=== PATIENT | male | born 1955 | race Caucasian/White ===

== ENCOUNTER 2019-11-21 15:27 | Inpatient (IN) | payer MEDICARE, OTHER, MEDICAID ==
[~2019-11-21] VITALS: Ht 165.1 cm; Wt 66.7 kg
[2019-11-21] MEDS ORDERED: SODIUM CHLORIDE 0.9% 1,000 ML IV ONE ×2 (16:08→17:10)
[2019-11-21] MEDS ORDERED: ACETAMINOPHEN 325MG TABLET PO ONE (16:15)
[2019-11-21] MEDS ORDERED: CEFTRIAXONE 1 G PREMIX 50 ML IV ONE (16:45)
[2019-11-21] MEDS ORDERED: AZITHROMYCIN 500 MG in DEXT 5% WATER 250 ML IV ONE (16:45)
[2019-11-21 17:58] LABS: BASOPHILS % 0.2 % (0.0-2.0); HEMATOCRIT. 44.3 % (42.0-52.0); LYMPHOCYTES % 17.7 % (20.0-50.0); MEAN CORPUSCULAR HEMOGLOBIN 31.9 pg (28.0-32.0); MEAN PLATELET VOLUME 8.1 fl (7.4-10.4); MONOCYTES % 7.8 % (2.0-8.0); NEUTROPHILS % 74.3 % (40.0-76.0); PLATELET 206 x1000/uL (130-400); RED BLOOD CELL COUNT 4.71 mill/uL (4.7-6.1); RED CELL DISTRIBUTION WIDTH 13.3 % (11.6-14.6)
[2019-11-21 18:07] LABS: CHLORIDE 101 mEq/L (98-107)
[2019-11-21 18:09] LABS: D-DIMER 1.19 mg/L FEU (<0.50); INR 1.1; PROTHROMBIN TIME 11.7 sec (9.6-11.0)
[2019-11-21 18:15] LABS: CREATINE KINASE 229 IU/L (39-308)
[2019-11-21] MEDS ORDERED: TRAMADOL 50MG TABLET PO PRN (19:15)
[2019-11-21] MEDS ORDERED: ALBUTEROL 6.7GM HFA INHALER ORI PRN (19:15)
[2019-11-21] MEDS ORDERED: DOCUSATE SODIUM 100MG CAPSULE PO PRN (19:15)
[2019-11-21] MEDS ORDERED: NITROGLYCERIN 0.4MG TABLET SL SL PRN (19:15)
[2019-11-21] MEDS ORDERED: CLONIDINE 0.1MG TABLET PO PRN (19:15)
[2019-11-21] MEDS ORDERED: MAGNESIUM/ALUMINUM HYDROXIDE/SIMETHICONE 30ML UDC PO PRN (19:15)
[2019-11-21] MEDS ORDERED: LORAZEPAM 0.5MG TABLET PO PRN (19:15)
[2019-11-21] MEDS ORDERED: ACETAMINOPHEN 325MG TABLET PO PRN (19:15)
[2019-11-21] MEDS ORDERED: ONDANSETRON HCL 4MG/2ML INJ IV PRN (19:15)
[2019-11-21] MEDS: ASCORBIC ACID 500 MG TABLET PO SCH (20:30)
[2019-11-21] MEDS: FAMOTIDINE 20MG TABLET PO SCH (20:30)
[2019-11-21] MEDS: GUAIFENESIN/DM 600MG/30MG ER TAB 12HR PO SCH (20:30)
[2019-11-21] MEDS: ENOXAPARIN 80MG/0.8ML SYR SUBCUT SCH (20:30)
[2019-11-21] MEDS ORDERED: ZOLPIDEM TARTRATE 5MG TABLET PO PRN (21:00)
[2019-11-21 21:27] LABS: CLARITY URINE CLEAR (CLEAR); COLOR URINE YELLOW (YELLOW); KETONES URINE NEGATIVE (NEGATIVE); LEUKOCYTE ESTERASE URINE NEGATIVE (NEGATIVE); NITRITE URINE NEGATIVE (NEGATIVE); OCCULT BLOOD URINE NEGATIVE (NEGATIVE); PROTEIN URINE 1+ (NEGATIVE); SPECIFIC GRAVITY URINE 1.013 (1.005-1.030)
[2019-11-21 21:53] LABS: METHADONE URINE SCREEN NEGATIVE (NEGATIVE); OPIATES URINE SCREEN NEGATIVE (NEGATIVE); PHENCYCLIDINE URINE SCREEN NEGATIVE (NEGATIVE)
[2019-11-21 21:55] LABS: *AMPHETAMINES SCREEN URINE NEGATIVE (NEGATIVE); *BARBITURATES SCREEN URINE NEGATIVE (NEGATIVE); *BENZODIAZEPINES SCREEN URINE NEGATIVE (NEGATIVE); *COCAINE SCREEN URINE NEGATIVE (NEGATIVE); CANNABINOID URINE SCREEN NEGATIVE (NEGATIVE)
[2019-11-21 23:42] LABS: CREATINE KINASE 230 IU/L (39-308)
[2019-11-21 23:43] LABS: CREATINE KINASE MB FRACTION < 1.0 ng/mL (0.5-3.6)
[2019-11-22 00:45] VITALS: BP 111/75
[2019-11-22 04:00] VITALS: BP 105/65
[2019-11-22 07:15] LABS: CHLORIDE 106 mEq/L (98-107)
[2019-11-22 07:20] LABS: PHOSPHORUS 3.4 mg/dL (2.5-4.9)
[2019-11-22 07:24] LABS: BASOPHILS % 0.2 % (0.0-2.0); CREATINE KINASE 219 IU/L (39-308); HEMATOCRIT. 39.9 % (42.0-52.0); HEMOGLOBIN. 13.7 g/dL (14.0-18.0); LYMPHOCYTES % 15.2 % (20.0-50.0); MEAN CORPUSCULAR VOLUME 93.6 fL (80.0-94.0); MEAN PLATELET VOLUME 8.4 fl (7.4-10.4); NEUTROPHILS % 76.6 % (40.0-76.0); PLATELET 203 x1000/uL (130-400); RED BLOOD CELL COUNT 4.26 mill/uL (4.7-6.1); RED CELL DISTRIBUTION WIDTH 13.4 % (11.6-14.6)
[2019-11-22 07:27] LABS: CREATINE KINASE MB FRACTION 1.2 ng/mL (0.5-3.6)
[2019-11-22 08:00] VITALS: BP 113/62
[2019-11-22] MEDS: FAMOTIDINE 20MG TABLET PO SCH ×2 (08:07→22:13)
[2019-11-22] MEDS: ENOXAPARIN 80MG/0.8ML SYR SUBCUT SCH ×2 (08:07→22:13)
[2019-11-22] MEDS: GUAIFENESIN/DM 600MG/30MG ER TAB 12HR PO SCH ×2 (08:07→22:13)
[2019-11-22] MEDS: ZINC SULFATE 220 MG ( 50 ) CAPSULE PO SCH (08:07)
[2019-11-22] MEDS: ASCORBIC ACID 500 MG TABLET PO SCH ×2 (08:07→22:13)
[2019-11-22] MEDS: ASPIRIN 325MG EC TABLET PO SCH (08:07)
[2019-11-22] MEDS: ACETAMINOPHEN 325MG TABLET PO PRN ×2 (08:08→17:07)
[2019-11-22] MEDS: DEXAMETHASONE 4MG TABLET PO SCH (11:49)
[2019-11-22 12:00] VITALS: BP 107/63
[2019-11-22] MEDS ORDERED: PNEUMOCOCCAL 23-VAL P-SAC VAC 0.5 ML IM ONE (12:00)
[2019-11-22] MEDS: ALBUTEROL 6.7GM HFA INHALER ORI SCH (12:28)
[2019-11-22 16:00] VITALS: BP 114/67
[2019-11-22] MEDS: CEFTRIAXONE 1,000 MG in DEXTROSE 5% WATER 50 ML IV SCH (17:07)
[2019-11-22] MEDS ORDERED: CEFTRIAXONE 1 G PREMIX 50 ML IV SCH (18:00)
[2019-11-22] MEDS ORDERED: AZITHROMYCIN 500 MG in DEXT 5% WATER 250 ML IV SCH (18:00)
[2019-11-22] MEDS: AZITHROMYCIN 500 MG in DEXT 5% WATER 250 ML IV SCH (19:14)
[2019-11-22 20:00] VITALS: BP 109/76
[2019-11-23] VITALS: BP 126/72
[2019-11-23] MEDS: GUAIFENESIN 200MG/10ML SUGAR FREE UDC PO PRN (01:12)
[2019-11-23 04:00] VITALS: BP 106/70
[2019-11-23] MEDS: DEXAMETHASONE 4MG TABLET PO SCH (08:06)
[2019-11-23] MEDS: ZINC SULFATE 220 MG ( 50 ) CAPSULE PO SCH (08:07)
[2019-11-23] MEDS: FAMOTIDINE 20MG TABLET PO SCH ×2 (08:07→20:42)
[2019-11-23] MEDS: GUAIFENESIN/DM 600MG/30MG ER TAB 12HR PO SCH ×2 (08:07→20:42)
[2019-11-23] MEDS: ENOXAPARIN 80MG/0.8ML SYR SUBCUT SCH ×2 (08:07→20:43)
[2019-11-23] MEDS: ASPIRIN 325MG EC TABLET PO SCH (08:07)
[2019-11-23] MEDS: ASCORBIC ACID 500 MG TABLET PO SCH ×2 (08:07→20:42)
[2019-11-23 08:30] VITALS: BP 116/74
[2019-11-23 12:00] VITALS: BP 109/59
[2019-11-23] MEDS ORDERED: PNEUMOCOCCAL 23-VAL P-SAC VAC 0.5 ML IM ONE (12:00)
[2019-11-23] MEDS: ALBUTEROL 6.7GM HFA INHALER ORI SCH ×2 (13:09→18:57)
[2019-11-23 16:00] VITALS: BP 116/80
[2019-11-23] MEDS: CEFTRIAXONE 1,000 MG in DEXTROSE 5% WATER 50 ML IV SCH (17:16)
[2019-11-23] MEDS: AZITHROMYCIN 500 MG in DEXT 5% WATER 250 ML IV SCH (17:38)
[2019-11-23 20:00] VITALS: BP 106/70
[2019-11-24] VITALS: BP 99/53
[2019-11-24] MEDS: ALBUTEROL 6.7GM HFA INHALER ORI SCH ×4 (00:33→18:21)
[2019-11-24 04:00] VITALS: BP 106/66
[2019-11-24 08:00] VITALS: BP 101/60
[2019-11-24] MEDS: GUAIFENESIN 200MG/10ML SUGAR FREE UDC PO PRN (09:31)
[2019-11-24] MEDS: ZINC SULFATE 220 MG ( 50 ) CAPSULE PO SCH (09:32)
[2019-11-24] MEDS: ASPIRIN 325MG EC TABLET PO SCH (09:32)
[2019-11-24] MEDS: GUAIFENESIN/DM 600MG/30MG ER TAB 12HR PO SCH ×2 (09:32→20:37)
[2019-11-24] MEDS: ENOXAPARIN 80MG/0.8ML SYR SUBCUT SCH ×2 (09:32→20:37)
[2019-11-24] MEDS: DEXAMETHASONE 4MG TABLET PO SCH (09:32)
[2019-11-24] MEDS: ASCORBIC ACID 500 MG TABLET PO SCH ×2 (09:32→20:37)
[2019-11-24] MEDS: FAMOTIDINE 20MG TABLET PO SCH ×2 (10:01→20:37)
[2019-11-24 12:00] VITALS: BP 105/63
[2019-11-24 16:00] VITALS: BP 108/61
[2019-11-24] MEDS: CEFTRIAXONE 1,000 MG in DEXTROSE 5% WATER 50 ML IV SCH (16:49)
[2019-11-24] MEDS: AZITHROMYCIN 500 MG in DEXT 5% WATER 250 ML IV SCH (18:21)
[2019-11-24 20:00] VITALS: BP 106/66
[2019-11-25] VITALS: BP 112/69
[2019-11-25] MEDS: ALBUTEROL 6.7GM HFA INHALER ORI SCH ×3 (00:01→12:00)
[2019-11-25 04:00] VITALS: BP 116/62
[2019-11-25 08:00] VITALS: BP 117/76
[2019-11-25] MEDS: GUAIFENESIN/DM 600MG/30MG ER TAB 12HR PO SCH ×2 (08:43→21:32)
[2019-11-25] MEDS: DEXAMETHASONE 4MG TABLET PO SCH (08:43)
[2019-11-25] MEDS: ASPIRIN 325MG EC TABLET PO SCH (08:44)
[2019-11-25] MEDS: ASCORBIC ACID 500 MG TABLET PO SCH ×2 (08:44→21:32)
[2019-11-25] MEDS: ZINC SULFATE 220 MG ( 50 ) CAPSULE PO SCH (08:44)
[2019-11-25] MEDS: FAMOTIDINE 20MG TABLET PO SCH ×2 (08:44→21:32)
[2019-11-25] MEDS: ENOXAPARIN 80MG/0.8ML SYR SUBCUT SCH ×2 (08:45→21:33)
[2019-11-25 12:00] VITALS: BP 113/90
[2019-11-25 16:00] VITALS: BP 115/76
[2019-11-25] MEDS: CEFTRIAXONE 1,000 MG in DEXTROSE 5% WATER 50 ML IV SCH (16:51)
[2019-11-25] MEDS: AZITHROMYCIN 500 MG in DEXT 5% WATER 250 ML IV SCH (18:05)
[2019-11-25 20:00] VITALS: BP 110/67
[2019-11-26] VITALS: BP 122/76
[2019-11-26 04:00] VITALS: BP 110/62
[2019-11-26] MEDS: ALBUTEROL 6.7GM HFA INHALER ORI SCH ×4 (06:04→17:45)
[2019-11-26 08:00] VITALS: BP 114/76
[2019-11-26] MEDS: ENOXAPARIN 80MG/0.8ML SYR SUBCUT SCH ×2 (08:54→21:00)
[2019-11-26] MEDS: FAMOTIDINE 20MG TABLET PO SCH ×2 (08:55→20:59)
[2019-11-26] MEDS: DEXAMETHASONE 4MG TABLET PO SCH (08:55)
[2019-11-26] MEDS: ASPIRIN 325MG EC TABLET PO SCH (08:55)
[2019-11-26] MEDS: GUAIFENESIN/DM 600MG/30MG ER TAB 12HR PO SCH ×2 (08:55→20:59)
[2019-11-26] MEDS: ZINC SULFATE 220 MG ( 50 ) CAPSULE PO SCH (08:55)
[2019-11-26] MEDS: ASCORBIC ACID 500 MG TABLET PO SCH ×2 (08:55→20:59)
[2019-11-26 12:00] VITALS: BP 115/65
[2019-11-26 16:00] VITALS: BP 118/70
[2019-11-26 20:00] VITALS: BP 123/77
[2019-11-27] VITALS: BP 125/80
[2019-11-27] MEDS: ALBUTEROL 6.7GM HFA INHALER ORI SCH ×3 (00:45→11:19)
[2019-11-27 04:00] VITALS: BP 126/81
[2019-11-27 08:00] VITALS: BP 131/80
[2019-11-27] MEDS: ZINC SULFATE 220 MG ( 50 ) CAPSULE PO SCH (08:27)
[2019-11-27] MEDS: FAMOTIDINE 20MG TABLET PO SCH (08:27)
[2019-11-27] MEDS: DEXAMETHASONE 4MG TABLET PO SCH (08:27)
[2019-11-27] MEDS: GUAIFENESIN/DM 600MG/30MG ER TAB 12HR PO SCH (08:27)
[2019-11-27] MEDS: ASPIRIN 325MG EC TABLET PO SCH (08:27)
[2019-11-27] MEDS: ASCORBIC ACID 500 MG TABLET PO SCH (08:27)
[2019-11-27] MEDS: ENOXAPARIN 80MG/0.8ML SYR SUBCUT SCH (08:28)
[2019-11-27 10:03] VITALS: BP 131/80
[2019-11-28] MEDS ORDERED: DEXAMETHASONE 4MG TABLET PO SCH (09:00)
== END 2019-11-27 11:55 | disposition home health service (06) | DRG 871 ==
LOC: ER 15:27 → MICUSO 18:44 → EDBEDREQTM 18:56 → EDBEDREQ 18:56 → SUPCPDRO 19:02 → 7WST 11-22 00:36
PROVIDERS: ADMIT Internal Medicine; ATTEND Internal Medicine
DX: A41.89 Other specified sepsis (principal); U07.1 COVID-19; J96.01 Acute respiratory failure with hypoxia; J12.89 Other viral pneumonia; E43 Unspecified severe protein-calorie malnutrition; E87.1 Hypo-osmolality and hyponatremia; D68.59 Other primary thrombophilia; E83.51 Hypocalcemia; Z68.24 Body mass index [BMI] 24.0-24.9, adult
CPT/HCPCS: 36415; 71045; 80053; 80061; 80305; 81003; 82550; 82553; 82728; 83036; 83605; 83615; 83735; 83880; 84100; 84145; 84484; 85025; 85379; 85384; 86140; 87635; 87804; 90732; 93005; 93970; 94640; 99285; J0456; J0696; J1650; J7030; J7060; J8540

== ENCOUNTER 2021-12-31 10:46 | Inpatient (IN) | payer MEDICARE, OTHER ==
[~2021-12-31] VITALS: Ht 160 cm; Wt 82.1 kg
[2021-12-31] MEDS ORDERED: MAGNESIUM/ALUMINUM HYDROXIDE/SIMETHICONE 30ML UDC PO STA (14:21)
[2021-12-31] MEDS ORDERED: DICYCLOMINE 10 MG/5 ML ORAL SYR PO STA (14:21)
[2021-12-31 14:57] LABS: BASOPHILS % 0.3 % (0.0-2.0); EOSINOPHILS % 0.3 % (0.0-5.0); HEMATOCRIT. 45.2 % (42.0-52.0); HEMOGLOBIN. 14.8 g/dL (14.0-18.0); MEAN CORPUSCULAR HEMOGLOBIN 31.8 pg (28.0-32.0); MEAN CORPUSCULAR VOLUME 96.8 fL (80.0-94.0); MONOCYTES % 9.1 % (2.0-8.0); NEUTROPHILS % 78.3 % (40.0-76.0); PLATELET 268 x1000/uL (130-400); RED BLOOD CELL COUNT 4.67 mill/uL (4.7-6.1); RED CELL DISTRIBUTION WIDTH 13.7 % (11.6-14.6)
[2021-12-31 15:01] LABS: CHLORIDE 100 mEq/L (98-107)
[2021-12-31] MEDS ORDERED: PIPERACILLIN/TAZ 3.375G PREMIX 50 ML IV ONE (17:45)
[2021-12-31] MEDS ORDERED: ONDANSETRON HCL 4MG/2ML INJ IV STA (18:35)
[2021-12-31] MEDS ORDERED: MORPHINE SULFATE 4 MG/ML CPJ (NOT FOR IM USE) IV STA (18:35)
[2021-12-31] MEDS: SODIUM CHLORIDE 0.9% 1,000 ML IV SCH (22:30)
[2021-12-31] MEDS ORDERED: CLONIDINE 0.1MG TABLET PO PRN (22:30)
[2021-12-31] MEDS ORDERED: PIPERACILLIN/TAZ 3.375G PREMIX 50 ML IV SCH (22:30)
[2021-12-31] MEDS ORDERED: ONDANSETRON HCL 4MG/2ML INJ IV PRN (22:30)
[2021-12-31] MEDS ORDERED: NALOXONE HCL 0.4MG/ML VIAL IV PRN (22:45)
[2022-01-01 01:15] VITALS: BP 104/54
[2022-01-01] MEDS: PIPERACILLIN/TAZOBACTAM 3.375G in DEXT 5% WATER 50ML IV SCH ×4 (01:53→21:40)
[2022-01-01] MEDS: MORPHINE SULFATE 2 MG/ML CPJ (NOT FOR IM USE) IV PRN (01:53)
[2022-01-01 04:00] VITALS: BP 95/55
[2022-01-01] MEDS: SODIUM CHLORIDE 0.9% 1,000 ML IV SCH ×3 (05:59→22:30)
[2022-01-01 08:00] VITALS: BP 108/63
[2022-01-01 08:20] LABS: BASOPHILS % 0.4 % (0.0-2.0); EOSINOPHILS % 1.6 % (0.0-5.0); HEMATOCRIT. 42.8 % (42.0-52.0); HEMOGLOBIN. 14.2 g/dL (14.0-18.0); LYMPHOCYTES % 11.4 % (20.0-50.0); MEAN CORPUSCULAR HEMOGLOBIN 32.2 pg (28.0-32.0); MEAN CORPUSCULAR VOLUME 97.2 fL (80.0-94.0); MONOCYTES % 10.5 % (2.0-8.0); NEUTROPHILS % 76.1 % (40.0-76.0); RED CELL DISTRIBUTION WIDTH 13.5 % (11.6-14.6)
[2022-01-01 08:27] LABS: CHLORIDE 101 mEq/L (98-107)
[2022-01-01 09:25] LABS: PLATELET 200 x1000/uL (130-400)
[2022-01-01 11:58] VITALS: BP 112/66
[2022-01-01] MEDS: ACETAMINOPHEN 325MG TABLET PO PRN ×2 (12:06→19:46)
[2022-01-01 16:00] VITALS: BP 111/53
[2022-01-01 20:00] VITALS: BP 109/57
[2022-01-02] VITALS: BP 118/54
[2022-01-02 04:00] VITALS: BP 116/57
[2022-01-02] MEDS: SODIUM CHLORIDE 0.9% 1,000 ML IV SCH ×3 (05:38→20:43)
[2022-01-02] MEDS: PIPERACILLIN/TAZOBACTAM 3.375G in DEXT 5% WATER 50ML IV SCH ×3 (05:38→21:27)
[2022-01-02 08:00] VITALS: BP 115/63
[2022-01-02 08:38] LABS: BASOPHILS % 0.4 % (0.0-2.0); EOSINOPHILS % 1.8 % (0.0-5.0); HEMATOCRIT. 41.3 % (42.0-52.0); HEMOGLOBIN. 13.9 g/dL (14.0-18.0); LYMPHOCYTES % 11.5 % (20.0-50.0); MEAN CORPUSCULAR HEMOGLOBIN 32.2 pg (28.0-32.0); MEAN CORPUSCULAR VOLUME 95.9 fL (80.0-94.0); MONOCYTES % 10.8 % (2.0-8.0); NEUTROPHILS % 75.5 % (40.0-76.0); PLATELET 317 x1000/uL (130-400); RED CELL DISTRIBUTION WIDTH 13.4 % (11.6-14.6)
[2022-01-02] MEDS: ACETAMINOPHEN 325MG TABLET PO PRN (08:54)
[2022-01-02 08:55] LABS: CHLORIDE 102 mEq/L (98-107)
[2022-01-02 11:49] VITALS: BP 95/38
[2022-01-02 16:00] VITALS: BP 113/61
[2022-01-02 21:00] VITALS: BP 114/37
[2022-01-02] MEDS: MORPHINE SULFATE 2 MG/ML CPJ (NOT FOR IM USE) IV PRN (21:28)
[2022-01-03] VITALS: BP 104/50
[2022-01-03] MEDS: ACETAMINOPHEN 325MG TABLET PO PRN ×2 (00:12→12:53)
[2022-01-03 04:00] VITALS: BP 114/67
[2022-01-03] MEDS: SODIUM CHLORIDE 0.9% 1,000 ML IV SCH ×3 (04:04→23:07)
[2022-01-03 05:35] LABS: HEMATOCRIT. 35.8 % (42.0-52.0); MEAN CORPUSCULAR HEMOGLOBIN 32.2 pg (28.0-32.0); MEAN CORPUSCULAR VOLUME 95.9 fL (80.0-94.0); MEAN PLATELET VOLUME 8.3 fl (7.4-10.4); PLATELET 263 x1000/uL (130-400); RED BLOOD CELL COUNT 3.73 mill/uL (4.7-6.1)
[2022-01-03 05:39] LABS: CHLORIDE 105 mEq/L (98-107)
[2022-01-03] MEDS: PIPERACILLIN/TAZOBACTAM 3.375G in DEXT 5% WATER 50ML IV SCH ×3 (05:55→21:33)
[2022-01-03 08:00] VITALS: BP 114/67
[2022-01-03] MEDS: MORPHINE SULFATE 2 MG/ML CPJ (NOT FOR IM USE) IV PRN ×2 (10:48→17:50)
[2022-01-03 12:00] VITALS: BP 114/64
[2022-01-03 12:32] LABS: PLATELET ESTIMATE NORMAL
[2022-01-03 16:00] VITALS: BP 108/61
[2022-01-03 20:00] VITALS: BP 98/38
[2022-01-04] VITALS: BP 125/76
[2022-01-04 04:00] VITALS: BP 122/66
[2022-01-04] MEDS: SODIUM CHLORIDE 0.9% 1,000 ML IV SCH ×3 (05:50→22:06)
[2022-01-04] MEDS: PIPERACILLIN/TAZOBACTAM 3.375G in DEXT 5% WATER 50ML IV SCH ×3 (05:51→22:05)
[2022-01-04 08:00] VITALS: BP 117/69
[2022-01-04 12:00] VITALS: BP 112/61
[2022-01-04] MEDS: ACETAMINOPHEN 325MG TABLET PO PRN (15:05)
[2022-01-04 16:00] VITALS: BP 94/44
[2022-01-04] MEDS: MIDODRINE HCL 5MG TABLET PO SCH (17:49)
[2022-01-04 20:00] VITALS: BP 120/68
[2022-01-05] VITALS: BP 114/84
[2022-01-05 04:00] VITALS: BP 110/69
[2022-01-05] MEDS: PIPERACILLIN/TAZOBACTAM 3.375G in DEXT 5% WATER 50ML IV SCH ×3 (06:29→21:17)
[2022-01-05] MEDS: SODIUM CHLORIDE 0.9% 1,000 ML IV SCH ×3 (06:29→22:58)
[2022-01-05] MEDS ORDERED: ROCURONIUM BROMIDE 10MG/ML VIAL 5ML IV ONE (07:44)
[2022-01-05] MEDS ORDERED: PROPOFOL 200MG/20ML VIAL IV ONE (07:44)
[2022-01-05] MEDS ORDERED: MIDAZOLAM HCL 2 MG/2 ML VIAL ONE (07:45)
[2022-01-05] MEDS ORDERED: FENTANYL CITRATE/PF 50MCG/ML 2ML VIAL ONE (07:45)
[2022-01-05 07:51] LABS: BASOPHILS % 0.8 % (0.0-2.0); CHLORIDE 109 mEq/L (98-107); EOSINOPHILS % 4.3 % (0.0-5.0); HEMATOCRIT. 35.8 % (42.0-52.0); HEMOGLOBIN. 12.1 g/dL (14.0-18.0); LYMPHOCYTES % 18.5 % (20.0-50.0); MEAN CORPUSCULAR HEMOGLOBIN 32.1 pg (28.0-32.0); MEAN CORPUSCULAR VOLUME 95.2 fL (80.0-94.0); MEAN PLATELET VOLUME 7.5 fl (7.4-10.4); MONOCYTES % 9.8 % (2.0-8.0); NEUTROPHILS % 66.6 % (40.0-76.0); PLATELET 306 x1000/uL (130-400); RED BLOOD CELL COUNT 3.76 mill/uL (4.7-6.1)
[2022-01-05 08:00] VITALS: BP 116/86
[2022-01-05 08:00] LABS: HDL CHOLESTEROL 13 mg/dL (40-59); LDL CHOLESTEROL 99 mg/dL (5-100)
[2022-01-05] MEDS ORDERED: ONDANSETRON HCL 4MG/2ML INJ IV PRN ×2 (08:15→10:00)
[2022-01-05] MEDS ORDERED: BUPIVACAINE HCL/PF 0.5% (5MG/ML) 10ML ONE (08:42)
[2022-01-05] MEDS ORDERED: SKIN ADHESIVE 0.7 GM EA TOP ONE (08:42)
[2022-01-05] MEDS ORDERED: HYDROMORPHONE HCL/PF 2MG/ML CPJ ONE (08:53)
[2022-01-05] MEDS ORDERED: METOCLOPRAMIDE HCL 10MG/2ML VIAL ONE (08:55)
[2022-01-05] MEDS ORDERED: KETOROLAC 30MG/ML VIAL ONE (08:56)
[2022-01-05] MEDS ORDERED: ONDANSETRON HCL 4MG/2ML INJ ONE (08:56)
[2022-01-05] MEDS ORDERED: GLYCOPYRROLATE 0.2 MG/ML 2ML VIAL ONE (08:59)
[2022-01-05] MEDS: MIDODRINE HCL 5MG TABLET PO SCH ×3 (09:00→17:00)
[2022-01-05] MEDS ORDERED: FENTANYL CITRATE/PF 50MCG/ML 2ML VIAL IV PRN (10:00)
[2022-01-05] MEDS ORDERED: HYDROMORPHONE HCL/PF 2MG/ML CPJ IV PRN (10:00)
[2022-01-05 12:00] VITALS: BP 110/74
[2022-01-05] MEDS: DEXT 5%/0.45% NACL KCL 20MEQ/L 1,000 ML IV SCH (13:18)
[2022-01-05] MEDS: SODIUM CHLORIDE 0.9% INJ 3ML FLUSH IVF SCH ×2 (13:19→22:58)
[2022-01-05 16:00] VITALS: BP 119/77
[2022-01-05] MEDS: MORPHINE SULFATE 4 MG/ML CPJ (NOT FOR IM USE) IV PRN (17:43)
[2022-01-05 20:00] VITALS: BP 130/76
[2022-01-05] MEDS: MORPHINE SULFATE 2 MG/ML CPJ (NOT FOR IM USE) IV PRN (21:17)
[2022-01-05] MEDS: ATORVASTATIN CALCIUM 20MG TABLET PO SCH (21:41)
[2022-01-05] MEDS: ACETAMINOPHEN 325MG TABLET PO PRN (21:42)
[2022-01-06] VITALS: BP 110/60
[2022-01-06] MEDS: DEXT 5%/0.45% NACL KCL 20MEQ/L 1,000 ML IV SCH ×2 (01:35→10:10)
[2022-01-06 04:00] VITALS: BP 110/64
[2022-01-06] MEDS: MORPHINE SULFATE 2 MG/ML CPJ (NOT FOR IM USE) IV PRN ×2 (05:34→21:45)
[2022-01-06] MEDS: SODIUM CHLORIDE 0.9% INJ 3ML FLUSH IVF SCH ×3 (06:00→21:37)
[2022-01-06] MEDS: SODIUM CHLORIDE 0.9% 1,000 ML IV SCH (06:05)
[2022-01-06 06:50] LABS: BASOPHILS % 0.4 % (0.0-2.0); HEMATOCRIT. 34.2 % (42.0-52.0); HEMOGLOBIN. 11.5 g/dL (14.0-18.0); LYMPHOCYTES % 14.4 % (20.0-50.0); MEAN CORPUSCULAR HEMOGLOBIN 32.2 pg (28.0-32.0); MEAN PLATELET VOLUME 7.5 fl (7.4-10.4); MONOCYTES % 13.5 % (2.0-8.0); NEUTROPHILS % 70.7 % (40.0-76.0); PLATELET 332 x1000/uL (130-400); RED BLOOD CELL COUNT 3.57 mill/uL (4.7-6.1)
[2022-01-06 07:17] LABS: CHLORIDE 104 mEq/L (98-107)
[2022-01-06 08:00] VITALS: BP 112/59
[2022-01-06] MEDS: MIDODRINE HCL 5MG TABLET PO SCH ×3 (08:22→17:50)
[2022-01-06] MEDS: MORPHINE SULFATE 4 MG/ML CPJ (NOT FOR IM USE) IV PRN (10:11)
[2022-01-06] MEDS ORDERED: LEVO500T90 MT (13:20)
[2022-01-06] MEDS ORDERED: DOCU-138 MT (13:20)
[2022-01-06] MEDS ORDERED: METR-167 MT (13:20)
[2022-01-06 16:00] VITALS: BP 113/63
[2022-01-06] MEDS: PIPERACILLIN/TAZOBACTAM 3.375 G in DEXTROSE 5% WATER 50 ML IV SCH ×2 (17:49→22:00)
[2022-01-06 20:00] VITALS: BP 105/53
[2022-01-06] MEDS: ATORVASTATIN CALCIUM 20MG TABLET PO SCH (21:37)
[2022-01-07] VITALS: BP 116/67
[2022-01-07 04:00] VITALS: BP 115/64
[2022-01-07] MEDS: SODIUM CHLORIDE 0.9% INJ 3ML FLUSH IVF SCH (05:03)
[2022-01-07] MEDS: PIPERACILLIN/TAZOBACTAM 3.375 G in DEXTROSE 5% WATER 50 ML IV SCH (05:03)
[2022-01-07 08:00] VITALS: BP 117/63
[2022-01-07 08:07] LABS: BASOPHILS % 0.3 % (0.0-2.0); EOSINOPHILS % 1.6 % (0.0-5.0); HEMATOCRIT. 32.1 % (42.0-52.0); HEMOGLOBIN. 10.6 g/dL (14.0-18.0); LYMPHOCYTES % 10.4 % (20.0-50.0); MEAN CORPUSCULAR HEMOGLOBIN 31.6 pg (28.0-32.0); MEAN CORPUSCULAR VOLUME 95.8 fL (80.0-94.0); MEAN PLATELET VOLUME 7.4 fl (7.4-10.4); MONOCYTES % 11.5 % (2.0-8.0); NEUTROPHILS % 76.2 % (40.0-76.0); PLATELET 343 x1000/uL (130-400); RED BLOOD CELL COUNT 3.35 mill/uL (4.7-6.1); RED CELL DISTRIBUTION WIDTH 13.1 % (11.6-14.6)
[2022-01-07 08:22] LABS: CHLORIDE 104 mEq/L (98-107)
[2022-01-07] MEDS: MIDODRINE HCL 5MG TABLET PO SCH (08:51)
[2022-01-07 12:36] VITALS: BP 117/66
[2022-01-07 14:59] VITALS: BP 117/66
== END 2022-01-07 15:46 | disposition home or self-care (01) | DRG 854 ==
LOC: ER 10:46 → MICUSO 19:39 → EDBEDREQ 19:43 → EDBEDREQTM 19:43 → ENRESERV 22:57 → 6WST 01-01 00:21 → 6EST 01-07 10:55
PROVIDERS: ADMIT Internal Medicine; ATTEND Internal Medicine
PROC: 0FT44ZZ Resection of Gallbladder, Percutaneous Endoscopic Approach (ICD-10-PCS; principal; 2022-01-05)
DX: A41.9 Sepsis, unspecified organism (principal); E87.1 Hypo-osmolality and hyponatremia; K81.0 Acute cholecystitis; E11.9 Type 2 diabetes mellitus without complications; Z20.822 Contact with and (suspected) exposure to COVID-19; E78.5 Hyperlipidemia, unspecified; E66.9 Obesity, unspecified; E86.1 Hypovolemia; I10 Essential (primary) hypertension; N28.1 Cyst of kidney, acquired; E80.6 Other disorders of bilirubin metabolism; D64.9 Anemia, unspecified; R26.9 Unspecified abnormalities of gait and mobility; Z68.32 Body mass index [BMI] 32.0-32.9, adult; Z82.49 Family history of ischemic heart disease and other diseases of the circulatory system
CPT/HCPCS: 36415; 71045; 74176; 74181; 76705; 80048; 80053; 80061; 80076; 85025; 87426; 88304; 93005; 93306; 97161; 97165; 99285; J1170; J1885; J2250; J2270; J2405; J2543; J2704; J2765; J3010; J3490; J7060